=== PATIENT | male | born 1935 | race Caucasian/White ===

== ENCOUNTER → 2019-12-09 | Outpatient (CLI) | payer MEDICARE, OTHER ==
[~2019-12-09] VITALS: Ht 170.2 cm; Wt 74.8 kg
[2019-12-09] VITALS (10 sets, daily range): BP systolic 116–149; BP diastolic 51–67
[~2019-12-09] MED LIST: ACTOS15 MG PO; AMIODARONE HCL400 MG PO; AMLODIPINE BESYL5 MG PO; ASA81BEC PO; ASPIR 8181 MG PO; ASPIRIN81 M2 PO; ASPRIMOX 325 M325 MG PO; B COMPLEX WITH1 EACH PO; CORDARONE200 MG PO; COREG6.25 MG PO; COZAAR100 MG PO; ECONAZOLE NITRA30 GM; FISH OIL 1,0001 EAC5 PO; FISH OIL 1,001000 M2 PO; HYDROCODON-ACE1 EAC7 PO; HYZAAR 100-251 EACH PO; IMDUR 30 MG TAB30 M1 PO; ISOSORBIDE MONO30 M1 PO; LASIX 20 MG TAB20 MG PO; LIPITOR20 MG PO; LOSARTAN-HCTZ1 EAC1 PO; MULTI-VITAMIN1 EAC5 PO; MULTIVITAMINS1 EAC7 PO; NATURAL B-1001 EACH PO; NITROSTAT0.4 MG SUBLING; PACERONE 200 M200 MG PO; PAIN & FEVER325 MG PO; PAXIL10 MG; PERCOCET 5-3251 EACH PO; PIOGLITAZONE15 MG PO; PLAVIX 75 MG TA75 M1 PO; POTASSIUM20 PO; PRADAXA75 MG PO; PREDNISONE 20 M20 M1 PO; PRESERVISION A1 EACH PO; PROTONIX40 M1 PO; SIMVASTATIN40 MG PO; SYNTHROID100 MC1 PO; TRAMADOL HCL50 MG PO; VITAMIN B-1100 M1 PO; VITAMIN D1000 UNI1 PO; VITAMIN D31000 UNI2 PO; VITAMIN D3400 UNI2 PO; VYTORIN 10-801 EACH PO; XARELTO20 MG PO; ZETIA10 MG PO; ZOCOR40 MG PO
[2019-12-09 08:27] LABS: HEMATOCRIT 42.3 % (42.0-52.0); HEMOGLOBIN 14.5 gm/dL (14.0-18.0); MCH 31.6 pg (26.0-34.0); MCHC 34.2 g/dL (28.0-37.0); MCV 92.5 fL (80.0-100.0); MPV 7.7 fl. (7.2-11.1); RBC 4.58 mil/uL (4.50-6.00); RDW-CV 14.1 % (10.5-14.5); WBC 11.9 thou/uL (4.0-11.0)
[2019-12-09 08:37] LABS: ANION GAP 7 mmol/L (7-16); BUN 36 mg/dL (7-18); CALCIUM 8.9 mg/dL (8.5-10.1); CHLORIDE 105 mmol/L (98-107); CO2 31 mmol/L (21-32); CREATININE 1.5 mg/dL (0.6-1.3); GLUCOSE 162 mg/dL (70-99); POTASSIUM 3.8 mmol/L (3.5-5.1); SODIUM 143 mmol/L (136-145)
[2019-12-09 08:46] LABS: ALBUMIN 3.8 g/dL (3.4-5.0); ALKALINE PHOSPHATASE 93 U/L (46-116); CHOLESTEROL 126 mg/dL (<200); HDL CHOLESTEROL 63 mg/dL (>40); LDL CHOLESTEROL 56 mg/dL (<100); SERUM ASSESSMENT Clear; SGOT 21 U/L (15-37); SGPT 28 U/L (30-65); TOTAL BILIRUBIN 0.7 mg/dL (<0.1-1.0); TOTAL PROTEIN 7.3 g/dL (6.4-8.2); TRIGLYCERIDE 37 mg/dL (<150); VLDL 7 mg/dL (<40)
[2019-12-09 08:58] LABS: APTT 25.9 Seconds (25.0-31.3); PROTIME 10.6 Seconds (9.20-11.50)
--- NOTE | 2019-12-09 09:17 | EKG ---
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: : 1935 Requested By: Erick Valerio Order Number: [id number] Bladimir MD: Erick Valerio Measurements Intervals [place] Rate: 68 P: MA: 151 QRS: -55 QRSD: 182 T: 94 QT: 464 QTc: 494 Interpretive Statements Atrial-ventricular dual-paced complexes No further analysis attempted due to paced rhythm Compared to ECG 09/22/2016 07:39:05 paced rhythm now noted Electronically Signed On 12-09-2019 9:16:44 CDT by Erick Valerio [email or web address] <ELECTRONICALLY SIGNED> By: Erick Valerio MD, [facility] 12/09/19 0916 0852 Erick Valerio MD, [facility] /EPI
--- NOTE | 2019-12-10 16:34 | CARD ---
[address] [address] CARDIAC CATH REPORT Name: MONE ROSSRICK Hillman JR Room: [facility]#: [id number] Admission: 12/09/19 Attend Phys: Erick Valerio MD, F Discharge: Date of : 39 Report #: [id number] THIS REPORT FOR: //name// cc: Tonja Diaz Jackie RNP ~ APPROVED REPORT Study performed: 12/09/2019 08:47:19 Patient Details Patient Status: Out-Patient Room #: The patient is a 84 year-old male Event Personnel Erick Valerio Special Education Superintendent, Mena Be RN Rehab Trainer, Anais Diana RTR Scrub, Sophie Allen RTR Monitor Procedures Performed Art Access - R femoral artery, Left Heart Cath Coronaries, Bypass Grafts LHCCORCABG, Hemostasis w/ Mynx Indication Dyspnea, Unstable angina , Cardiomyopathy, Chest pain Risk Factors Peripheral Vascular Disease, Hypercholesterolemia, Coronary Artery Disease Previous Procedures/Diagnoses Previous CABGPrevious PCI, Previous Vascular Surgery Procedure Narrative The patient was brought electively to the Cardiac Catheterization Laboratory and was prepped and draped in a sterile manner. The right femoral groin was infiltrated with 2% Lidocaine subcutaneous anesthesia. A 6F [place] sheath was inserted into the right femoral artery. Coronary angiography was performed using coronary diagnostic catheters. The right coronary system was accessed and visualized with a 6F JR4 catheter. The left coronary system was accessed and visualized with a 6F JL4 catheter. The left ventricle was accessed and visualized with a 6F Pigtail catheter. Left ventricular/Aortic Valve gradient assessed via catheter pullback. Left ventriculogram was performed in FISHER projection. Closure device was deployed with a 6 Fr Mynx. The patient tolerated the procedure well and there were no [facility] [address] [place] [address] CARDIAC CATH REPORT Name: APURVA ROSS JR Room: [facility]#: [id number] Admission: 12/09/19 Attend Phys: Erick Valerio MD, F Discharge: Date of : 39 Report #: [id number] complications associated with the procedure. There was no hematoma. The saphenous vein grafts were visualized with a 6F JR4 catheter. The BLAIR graft was visualized with a 6F IM catheter. Intraoperative Conscious Sedation No sedation given. Procedure start time: 09:22. Procedure end time: 09:54. Fluoro Time: 5.4 minutes Dose: DAP 06933 cGycm2 981 mGy Contrast Type and Amount: Visipaque 110 ml Coronary Angiography The patient's coronary anatomy is right dominant. [place] Artery Percent Stenosis Grafts (Complete if Previous CABG=Yes: Percent Stenosis) BLAIR graft to mid LAD was widely patent. SVG to PDA and [place] of distal RCA was widely open. SVG to diagonal artery and marginal artery of circumflex was widely open. Diagnostic Cath Left Main 40% mid stenosis LAD 80% proximal stenosis, and 100% occluded after a small first diagonal branch Circumflex 100% occluded after a small first marginal branch Right Coronary 100% proximally occluded Left Ventriculography The left ventricular ejection fraction is estimated to be 30-35%. Left ventricular wall motion abnormalities are present. There is no mitral insufficiency. akinesis noted of the mid and distal anteroapical wall Hemodynamics The aortic pressure is 156/56 mmHg with a mean of 93 mmHg. The left ventricular pressure is 156/10 mmHg with a mean of mmHg. The left ventricular end diastolic pressure is 13 mmHg. There was no gradient across the aortic valve upon pullback. Pullback from the left ventricle to the aorta revealed no gradient across the aortic valve. Conclusion 1. chronic occlusion of the mid lad, mid circumflex, and proximal rca 2. patent [place] [address] CARDIAC CATH REPORT Name: MONE ROSSRICK Hillman JR Room: [facility]#: [id number] Admission: 12/09/19 Attend Phys: Erick Valerio MD, F Discharge: Date of : 39 Report #: [id number] 3. patent SVG to the PDA and [place] branch of the distal rca 4. patent SVG to the diagonal branch and the marginal branch of the left coronary artery 5. LVEF 30-35% Recommendations suspect noncardiac chest pain <ELECTRONICALLY SIGNED> By: Erick Valerio MD, FACC 12/10/19 1633 1633 [id number] Valerio MD, FAC /INF
== END | disposition home or self-care (01) ==
LOC: M.CL 07:50
PROVIDERS: ATTEND Internal Medicine Cardiovascular Disease
DX: I25.110 Atherosclerotic heart disease of native coronary artery with unstable angina pectoris (principal); R07.9 Chest pain, unspecified; R06.00 Dyspnea, unspecified; I42.9 Cardiomyopathy, unspecified; I10 Essential (primary) hypertension; E11.9 Type 2 diabetes mellitus without complications; E78.5 Hyperlipidemia, unspecified; Z95.1 Presence of aortocoronary bypass graft; Z98.890 Other specified postprocedural states; Z90.49 Acquired absence of other specified parts of digestive tract; Z87.19 Personal history of other diseases of the digestive system; Z79.899 Other long term (current) drug therapy; Z91.041 Radiographic dye allergy status; Z88.8 Allergy status to other drugs, medicaments and biological substances